=== PATIENT | female | born 1945 | race African-American/Black ===

== ENCOUNTER 2020-05-10 06:26 | Inpatient (IN) ==
[2020-05-10] MEDS ORDERED: Lidocaine -MPF 4% 5 ML AMPUL ONE (07:09)
[2020-05-10] MEDS ORDERED: Ondansetron 4 MG/2 ML VIAL ONE (07:09)
[2020-05-10] MEDS ORDERED: *HR* Succinylcholine 200 MG/10 ML VIAL IVP ONE (07:09)
[2020-05-10] MEDS ORDERED: *HR* Rocuronium Bromide 50 MG/5 ML VIAL ONE (07:09)
[2020-05-10] MEDS ORDERED: *HR* FentaNYL (PF) 100 MCG/2 ML VIAL ONE (07:11)
[2020-05-10] MEDS ORDERED: *HR* Propofol 200 MG/20 ML VIAL IVP ONE (07:11)
[2020-05-10] MEDS ORDERED: CeFAZolin Syr 2,000MG/20 ML 2,000 MG/20 ML SYRINGE IVPB ONE (07:12)
[2020-05-10] MEDS ORDERED: Lidocaine -MPF 2% 2 ML VIAL ONE ×3 (07:14→09:11)
[2020-05-10] MEDS ORDERED: EPHEDrine 50 MG/ML VIAL ONE (07:15)
[2020-05-10] MEDS ORDERED: Ringers Solution, Lactated 1,000 ML IVC SCH (07:15)
[2020-05-10] MEDS ORDERED: Ondansetron 4 MG/2 ML VIAL IVP PRN ×2 (07:19→10:22)
[2020-05-10] MEDS ORDERED: *HR* OxyCODONE Immed Rel 5 MG TABLET PO PRN (07:19)
[2020-05-10] MEDS ORDERED: Promethazine 6.25 MG in Water for inj. (sterile) 20 ML IVPB PRN (07:19)
[2020-05-10] MEDS ORDERED: EPINEPHrine 1 MG/ML VIAL ONE (07:20)
[2020-05-10] MEDS ORDERED: ceFAZolin 1,000 MG, Sodium Chloride IRRigation 1,000 ML IR ONE (07:45)
[2020-05-10] MEDS ORDERED: Albumin Human 5% 25.0 GM/500 ML IV.SOLN ONE (08:49)
[2020-05-10] MEDS ORDERED: *HR* Metoprolol 5 MG/5 ML VIAL IVP ONE (09:00)
[2020-05-10] MEDS ORDERED: *HR* Magnesium Sulfate 1 GM/2 ML VIAL ONE (09:02)
[2020-05-10] MEDS ORDERED: *HR* Metoprolol 5 MG/5 ML VIAL IVP PRN (10:22)
[2020-05-10] MEDS: *HR* HYDROmorphone PF 0.5 MG/0.5 ML SYRINGE IVP PRN ×2 (10:35→10:50)
[2020-05-10] MEDS: 0.9 % Sodium Chloride 1,000 ML IVC SCH (14:16)
[2020-05-10] MEDS: CeFAZolin 2 GM/120 ML BAG IVPB SCH (17:57)
[2020-05-11] MEDS: CeFAZolin 2 GM/120 ML BAG IVPB SCH (00:28)
[2020-05-11] MEDS: 0.9 % Sodium Chloride 1,000 ML IVC SCH (04:09)
[2020-05-11 05:53] LABS: Basophils % 0.2 %; Hematocrit 29.7 % (35.3-44.9); Hemoglobin 9.6 g/dL (11.5-15.4); Immature Granulocytes % 0.4 % (0-4); Lymphocytes # 3.8 K/mcL (0.6-4.6); Lymphocytes % 22.8 %; Mean Corpuscular HGB Conc 32.3 g/dL (31.6-35.5); Mean Corpuscular Hemoglobin 30.4 pg (28.0-33.3); Mean Platelet Volume 10.1 fL (9.4-12.4); Monocytes # 1.7 K/mcL (0.0-1.3); Monocytes % 10.4 %; Neutrophils # 10.9 K/mcL (1.6-8.9); Platelet Count 255 K/mcL (140-400); Red Blood Count 3.16 M/mcL (3.82-4.97); Red Cell Distribution Width 13.7 % (11.5-14.5); Segmented Neutrophils % 66.2 %; White Blood Count 16.5 K/mcL (4.3-11.1)
[2020-05-11 06:10] LABS: Calcium 8.5 mg/dL (8.6-10.3); Potassium 4.4 mEq/L (3.5-5.1)
[2020-05-11] MEDS ORDERED: D5% in Water 1,000 ML IVC PRN (08:35)
[2020-05-11] MEDS ORDERED: Artificial Tears SOLN 15 ML BOTTLE OP PRN (08:35)
[2020-05-11] MEDS ORDERED: Dextrose Gel 15 GM/37.5 ML TUBE PO PRN ×2 (08:35)
[2020-05-11] MEDS ORDERED: *HR* Dextrose 50 % in Water (Vial) 50 ML VIAL IVP PRN (08:35)
[2020-05-11] MEDS ORDERED: 0.9 % Sodium Chloride 1,000 ML IVC SCH (08:42)
[2020-05-11] MEDS: *HR* OxyCODONE Immed Rel 5 MG TABLET PO PRN ×3 (09:11→18:00)
[2020-05-11] MEDS: Aspirin 81 MG TAB.CHEW PO SCH (09:11)
[2020-05-11] MEDS: Loratadine 10 MG TABLET PO SCH (09:13)
[2020-05-11] MEDS: *HR* Heparin 5,000 UNIT/ML VIAL SQ SCH ×2 (09:21→17:58)
[2020-05-11] MEDS: Pantoprazole 40 MG VIAL IVP SCH ×2 (09:21→17:58)
[2020-05-11] MEDS: Acetaminophen IV 1,000 MG/100 ML BAG IVPB SCH ×4 (09:40→23:08)
[2020-05-11 11:43] LABS: Estimated Average Glucose 120 mg/dl; Hemoglobin A1C 5.8 %
[2020-05-11] MEDS: Insulin LISPRO 300 UNITS/3 ML VIAL SUBQ SCH ×3 (11:58→20:47)
[2020-05-12 04:42] LABS: Basophils % 0.1 %; Eosinophils % 0.2 %; Hematocrit 26.1 % (35.3-44.9); Hemoglobin 8.1 g/dL (11.5-15.4); Immature Granulocytes % 0.4 % (0-4); Lymphocytes # 3.3 K/mcL (0.6-4.6); Lymphocytes % 22.6 %; Mean Corpuscular Volume 93.5 fL (83.0-100.0); Monocytes # 1.3 K/mcL (0.0-1.3); Monocytes % 8.9 %; Neutrophils # 9.8 K/mcL (1.6-8.9); Platelet Count 201 K/mcL (140-400); Red Blood Count 2.79 M/mcL (3.82-4.97); Red Cell Distribution Width 14.1 % (11.5-14.5); Segmented Neutrophils % 67.8 %; White Blood Count 14.4 K/mcL (4.3-11.1)
[2020-05-12 04:57] LABS: Calcium 8.7 mg/dL (8.6-10.3); Magnesium 2.1 mg/dL (1.6-2.6); Phosphorous 3.6 mg/dL (2.7-4.5); Potassium 4.3 mEq/L (3.5-5.1)
[2020-05-12] MEDS: *HR* Heparin 5,000 UNIT/ML VIAL SQ SCH ×2 (06:00→17:09)
[2020-05-12] MEDS: Pantoprazole 40 MG VIAL IVP SCH ×2 (06:00→17:09)
[2020-05-12] MEDS: Acetaminophen IV 1,000 MG/100 ML BAG IVPB SCH ×3 (06:00→17:09)
[2020-05-12] MEDS: Insulin LISPRO 300 UNITS/3 ML VIAL SUBQ SCH ×4 (09:23→20:33)
[2020-05-12] MEDS: polyethylene glycoL 3350 17 GM POWD.PACK PO SCH (09:24)
[2020-05-12] MEDS: Aspirin 81 MG TAB.CHEW PO SCH (09:25)
[2020-05-12] MEDS: Loratadine 10 MG TABLET PO SCH (09:25)
[2020-05-13] MEDS: Acetaminophen IV 1,000 MG/100 ML BAG IVPB SCH ×3 (00:14→05:44)
[2020-05-13] MEDS: Pantoprazole 40 MG VIAL IVP SCH (05:44)
[2020-05-13] MEDS: *HR* Heparin 5,000 UNIT/ML VIAL SQ SCH (05:45)
[2020-05-13] MEDS: Aspirin 81 MG TAB.CHEW PO SCH (08:20)
[2020-05-13] MEDS: polyethylene glycoL 3350 17 GM POWD.PACK PO SCH (08:21)
[2020-05-13] MEDS: Loratadine 10 MG TABLET PO SCH (08:21)
[2020-05-13] MEDS: Insulin LISPRO 300 UNITS/3 ML VIAL SUBQ SCH ×2 (10:25→11:29)
[2020-05-13 11:08] VITALS: BP 138/45
== END 2020-05-13 14:50 | DRG 355 ==
LOC: SAMDAY 06:26 → 3ANU 11:34
PROVIDERS: ADMIT Surgery; ATTEND Surgery